=== PATIENT | male | born 1950 | race Caucasian/White ===

== ENCOUNTER 2024-11-15 18:09 | Emergency (ER) | payer OTHER ==
[~2024-11-15] VITALS: Ht 182.9 cm; Wt 76.4 kg
--- NOTE | 2024-11-15 18:45 | Physician Documentation ---
History of Present Illness ~ Chief Complaint: Mechanical Fall Stated Complaint: FALL, RIB PAIN Time Seen by MD: 19:59 Primary Medical Doctor: [facility] This is a 73-year-old male who presents with left rib, arm, and wrist pain following a ground level fall approximately four days prior, patient reports head strike with possible loss of consciousness and reports that he is on blood thinners. No other injuries or other acute symptoms or concerns reported. History as above. Not taking anything for the pain. He reports taking some aspirin when he called the advice nurse and told him about his chest pain Tetanus within 5 Years?: No Medication Reconciliation Allergies: Coded Allergies: No Known Allergies (Unverified , 11/15/24) Review of Systems ROS As stated above in the HPI, otherwise all systems are reviewed and negative. Physical Exam Vital Signs: Heart Rate: 103, Respiratory Rate: 15, BP: 144/80, Pulse Oximetry: 99, Weight: 76.400 Oxygen Flow Rate: 0 Physical Exam General: Patient is awake, alert, oriented x4 in no acute distress Head: Normocephalic with very small abrasion above left eyebrow Eyes: Conjunctival normal. EOMI. PERRL. ENT: Mucous membranes moist. No zavala signs, no raccoon eyes, no hemotympanum, no rhinorrhea Neck: Supple, trachea is midline. No cervical midline tenderness Chest: Clear to auscultation bilaterally without rales, rhonchi, or wheezes. There is no accessory muscle use or retractions. Tenderness to palpation to precordial area Cardiac: Heart rate 82 and regular without murmurs, gallops, or rubs. Abd: Soft, nondistended, nontender, with normoactive bowel sounds. No guarding, rebound, or rigidity. Extremities: Normal strength. Normal range of motion. No deformities or edema. Neuro: Cranial nerves II-XII grossly intact. No focal neuro deficits. Progress Progress Note Reviewed CT scan findings. I am consulting neurosurgeon at [facility] Spoke with Dr. Elder, neurosurgeon at [facility] who reviewed imaging. Unsure of what the abnormal discrepancy is on CT. Reports that it could be just about anything and favors a calcification. As that has four days since fall that has very unlikely that this is a bleed especially in the location that has that has. He recommends neuro checks an MRI in the morning. Results/Orders Results/Orders Vital Signs 11/15/24 11/15/24 11/15/24 11/15/24 18:11 19:45 20:07 20:29 Pulse 103 102 Resp 15 17 18 16 B/P (MAP) 144/80 Pulse Ox 99 100 O2 Flow Rate 0 11/15/24 11/15/24 11/15/24 11/16/24 21:33 21:34 23:37 01:38 Pulse 72 76 74 Resp 16 18 16 B/P (MAP) 120/67 (84) 141/75 (97) 129/70 (89) Pulse Ox 98 99 97 O2 Flow Rate 0 4.0 11/16/24 11/16/24 11/16/24 11/16/24 04:02 05:23 06:30 07:30 Pulse 70 70 76 70 Resp 18 16 18 16 B/P (MAP) 138/72 (94) 152/66 (94) 153/79 (103) 128/106 (113) Pulse Ox 97 97 97 97 O2 Flow Rate 0 0 11/16/24 11/16/24 11/16/24 11/16/24 08:30 09:30 10:30 11:30 Pulse 72 68 78 75 Resp 18 16 16 16 B/P (MAP) 153/72 (99) 166/87 (113) 170/90 (116) 188/92 (124) Pulse Ox 98 99 98 100 O2 Flow Rate 0 0 0 0 11/16/24 11:33 B/P (MAP) Laboratory Tests Test 11/15/24 19:50 White Blood Count 5.8 Red Blood Count 4.19 L Hemoglobin 14.2 Hematocrit 41.1 L Mean Corpuscular Volume 97.9 Mean Corpuscular Hemoglobin 33.8 H Mean Corpuscular Hemoglobin Concent 34.5 Red Cell Distribution Width 13.6 Platelet Count 138 L Mean Platelet Volume 8.2 Neutrophils (%) (Auto) 73.2 Lymphocytes (%) (Auto) 16.3 L Monocytes (%) (Auto) 8.5 Eosinophils (%) (Auto) 1.4 Basophils (%) (Auto) 0.6 Neutrophils # (Auto) 4.3 Lymphocytes # (Auto) 0.9 L Monocytes # (Auto) 0.5 Eosinophils # (Auto) 0.1 Basophils # (Auto) 0.0 CBC Comment Sodium Level 141 Potassium Level 3.6 Chloride Level 104 Carbon Dioxide Level 28.9 Anion Gap 8 Blood Urea Nitrogen 12 Creatinine 0.90 Estimated GFR/1.73 m2 83 BUN/Creatinine Ratio 13.3 Glucose Level 144 H Calcium Level 9.2 Total Bilirubin 0.6 Aspartate Amino Transf (AST/SGOT) 26 Alanine Aminotransferase (ALT/SGPT) 25 Alkaline Phosphatase 154 H Troponin I High Sensitivity 9 Total Protein 7.0 Albumin 3.7 Globulin 3.3 Albumin/Globulin Ratio 1.1 Chemistry Comments EKG/XRAY/CT/US/VASC/MRI EKG : Additional Comment EKG interpreted by myself shows time of 1953, rate 81, sinus rhythm, left axis deviation, no ST changes, right bundle-branch block, noted PVC Medical Decision Making Findings Patient presents to the emergency room for evaluation of chest pain that has well as head strike on thinners four days ago. Differentials include but are not limited to intracranial bleed, musculoskeletal pain, pneumothorax therefore emergent labs and imaging indicated. Of concern is patient's head CT scan which shows possible bleed for which I did speak with neurosurgeon who recommends MRI. MRI ordered and to be followed up by oncoming physician. Patient's chest pain is musculoskeletal. I do not feel he was suffering from cardiac cause for his pain. MRI nonacute. Safe for d/c home. Departure Disposition: HOME / SELF CARE / HOMELESS Impression: Primary Impression: Rib pain Condition: Stable Discharge Instructions: Fall Prevention in the Home, Adult, [id number] Referrals: NO PRIMARY CARE PROVIDER (PCP) Education Educated: Patient Educated regarding: diagnosis, treatment Signature Scribe Signature: No scribe Attestation: The note accurately reflects work and decisions made by me.William Kang MD 11/16/24 05:40 LILIAM WAITE Nov 15, 2024 18:45 WILLIAM KANG MD Nov 15, 2024 20:15 AL HERNANDEZ MD Nov 16, 2024 12:07
--- NOTE | 2024-11-15 19:16 | RADIOLOGY REPORT ---
EXAM: CT CT CERVICAL SPINE HISTORY: Fall with head strike. Pain. COMPARISON: None CTDIvol 23.03 mGy, DLP 584.24 mGy*cm. TECHNIQUE: Multiple axial CT images of the spine were obtained using bone algorithm. Axial and coronal reformatting was done. Bone and soft tissue windows were reviewed. FINDINGS: No evidence of definite acute fracture, spinal dislocation, or significant appearing acute subluxation is seen. Straightening of normal cervical lordosis. Moderate to severe degenerative disease throughout the mid and lower cervical spine with disc height loss, endplate sclerosis, and endplate osteophytes. Advanced degenerative changes throughout the cervical spine. IMPRESSION: No definite CT evidence of acute fracture or dislocation of the bony cervical spine.
--- NOTE | 2024-11-15 19:18 | RADIOLOGY REPORT ---
EXAM: CT CT HEAD INDICATION: Fall with head strike TECHNIQUE: CT images of the head were obtained without administration of IV contrast. CT scans at this facility use dose modulation, iterative reconstruction, and/or weight based dosing when appropriate to reduce radiation dose to as low as reasonably achievable. COMPARISON: None FINDINGS: PARENCHYMA: No acute hemorrhage. There is no mass effect, midline shift, or herniation. There is preservation of the regalado white differentiation. VENTRICLES: No hydrocephalus. Indeterminate small 7 mm oval-shaped density located along the superior margin of the left lateral ventricle of indeterminate etiology. Not a typical location for the choroid plexus. Small focus of hemorrhage versus hyperintense metastasis remains in the differential. Consider MRI of the brain with and without contrast. EXTRA-AXIAL SPACES: No extra-axial fluid collections. OTHER: The bony structures are intact. Visualized portions of the paranasal sinuses and mastoid air cells are clear. Degenerative change of bilateral temporomandibular joints. IMPRESSION: 1. No CT evidence of an acute intracranial hemorrhage. 2. Indeterminate small 7 mm oval-shaped density located along the superior margin of the left lateral ventricle of indeterminate etiology. 3. Not a typical location for the choroid plexus. 4. Small focus of hemorrhage versus hyperintense metastasis remains in the differential. 5. Consider MRI of the brain with and without contrast.
--- NOTE | 2024-11-15 19:56 | ELECTROCARDIOGRAPH REPORT ---
[facility] Test Date: 2024-11-15 Test Time: 19:54:03 Pat Name: ROBERTA WHITE Department: [facility] Patient ID: [facility]-[id number] Room: Gender: M Engineering Research Manager: : 1950 Requested By: PERLA MICHEL Order Number: [id number] Reading MD: Measurements Intervals [place] Rate: 81 P: 35 TN: 169 QRS: -57 QRSD: 154 T: 63 QT: 399 QTc: 464 Interpretive Statements Sinus rhythm Ventricular premature complex Right bundle branch block Anterior infarct, age indeterminate Please click the below link to view image of tracing.
[2024-11-15 20:03] LABS: MEAN PLATELET VOLUME 8.2 FL (7.4-10.4); RED CELL DISTRIBUTION WIDTH 13.6 % (11.5-14.5)
[2024-11-15 20:15] LABS: CREATININE 0.90 MG/DL (0.60-1.10); TOTAL CARBON DIOXIDE 28.9 MMOL/L (24-32); eCRCL 81 ML/MIN; eGFR 83 ML/MIN
[2024-11-15] MEDS: HYDROcodone/acetaminophen 5mg/325mg tablet PO ONE (20:29)
[2024-11-15] MEDS: ondansetron 4mg rapidly disintigrating tab PO ONE (20:30)
--- NOTE | 2024-11-15 20:31 | RADIOLOGY REPORT ---
CHEST RADIOGRAPH REASON FOR EXAM: syncope COMPARISON: DI CHEST,SINGLE VIEW on DOS: 05/23/24 TECHNIQUE: One view of the chest is provided FINDINGS: The cardiomediastinal silhouette is within normal limits for technique. There is aortic atherosclerosis. There is no focal airspace disease. There is no significant pleural effusion. No acute bony abnormality is identified. IMPRESSION: No radiographic evidence of acute cardiopulmonary process.
--- NOTE | 2024-11-16 11:31 | RADIOLOGY REPORT ---
CLINICAL HISTORY: possible bleed TECHNIQUE: Routine multiplanar imaging of the brain was performed without gadolinium contrast. COMPARISON: CT CT HEAD on DOS: 11/15/24 FINDINGS: There is no abnormal restricted diffusion to suggest acute infarction. There is mild brain volume loss. There are no significant chronic small vessel ischemic foci. There is no evidence for acute ischemic changes, mass, mass effect, or extra- axial fluid collection. There is no hydrocephalus or midline shift. The cerebral sulci and subarachnoid cisterns are not effaced. The imaged paranasal sinuses are clear. There has been bilateral cataract extraction. The midline structures, including the corpus callosum, are unremarkable. The intracranial flow voids are maintained. IMPRESSION: No acute intracranial abnormality seen. No evidence for acute infarct. No significant white matter disease. Bilateral cataract extraction.
[2024-11-16 12:16] VITALS: BP 146/82; PULSE 85; RESP 16; O2SAT 96
== END 2024-11-16 12:27 | disposition home or self-care (01) ==
LOC: ER 18:10
DX: S00.212A Abrasion of left eyelid and periocular area, initial encounter (principal); R07.81 Pleurodynia; M54.2 Cervicalgia; W18.30XA Fall on same level, unspecified, initial encounter; Y93.89 Activity, other specified; Y92.89 Other specified places as the place of occurrence of the external cause; Y99.8 Other external cause status
CPT/HCPCS: 36415; 70450; 71045; 72125; 80053; 84484; 85025; 93005; 99285